=== PATIENT | female | born 1975 | race Asian ===

== ENCOUNTER 2024-04-27 14:20 | Emergency (ER) | payer OTHER ==
[~2024-04-27] VITALS: Ht 149.9 cm; Wt 61.4 kg
[2024-04-27 14:24] VITALS: TEMP 97.9
[2024-04-27] MEDS: ACETAMINOPHEN 500 MG TABLET PO ONE (15:52)
[2024-04-27] MEDS ORDERED: ACET-66 PO (15:58)
[2024-04-27 16:07] VITALS: BP 130/85; PULSE 80; RESP 18; O2SAT 99
== END 2024-04-27 16:37 | disposition home or self-care (01) ==
LOC: EMS 14:20
DX: S00.03XA Contusion of scalp, initial encounter (principal); S10.93XA Contusion of unspecified part of neck, initial encounter; I10 Essential (primary) hypertension; Y08.89XA Assault by other specified means, initial encounter; Y93.89 Activity, other specified; Y92.89 Other specified places as the place of occurrence of the external cause; Y99.8 Other external cause status
CPT/HCPCS: 99282; Z7502; Z7610